=== PATIENT | male | born 1990 | race Caucasian/White ===

== ENCOUNTER 2016-12-24 15:17 | Emergency (ER) | payer OTHER ==
[2016-12-24 15:32] VITALS: BP 129/71; PULSE 65; TEMP 98.2; BMI 33.9
--- NOTE | 2016-12-24 16:06 | PDOC ---
History of Present Illness - General Chief Complaint: Laceration Stated Complaint: INJURY Time Seen by Provider: 12/24/16 15:56 History Source: Patient Exam Limitations: No Limitations - History of Present Illness Initial Comments: 12/24/16 16:04 sharp edge of metal fell onto lateral aspect of left forearm, Past History - Past Medical History Allergies/Adverse Reactions: Allergies Allergy/AdvReac Type Severity Reaction Status Date / Time No Known Allergies Allergy Verified 12/24/16 15:29 Home Medications: Ambulatory Orders NK [No Known Home Medication] 12/24/16 Other medical history: DENIES. - Psycho/Social/Smoking Cessation Hx Anxiety: No Suicidal Ideation: No Smoking Status: No Smoking History: Never smoked Number of Cigarettes Smoked Daily: 0 *Physical Exam - Vital Signs Last Vital Signs Temp Pulse Resp BP Pulse Ox 98.2 F 65 19 129/71 96 12/24/16 15:29 12/24/16 15:29 12/24/16 15:29 12/24/16 15:29 12/24/16 15:29
--- NOTE | 2016-12-24 16:32 | PDOC ---
History of Present Illness - General Chief Complaint: Laceration Stated Complaint: INJURY Time Seen by Provider: 12/24/16 15:56 History Source: Patient Exam Limitations: No Limitations - History of Present Illness Initial Comments: 12/24/16 17:07 Arm laceration incurred when patient was reaching for a piece of lighting when it fell and incised the lateral aspect of his left forearm. Denies range of motion problems or numbness or tingling to fingers, no other injury. Uncertain as to last tetanus shot. 12/24/16 17:08 Timing/Duration: reports: just prior to arrival Severity: Yes: mild Location: reports: none Associated Symptoms: reports: denies symptoms Past History - Travel Traveled outside of the country in the last 30 days: No Close contact w/someone who was outside of country & ill: No - Past Medical History Allergies/Adverse Reactions: Allergies Allergy/AdvReac Type Severity Reaction Status Date / Time No Known Allergies Allergy Verified 12/24/16 15:29 Home Medications: Ambulatory Orders NK [No Known Home Medication] 12/24/16 Other medical history: DENIES. - Psycho/Social/Smoking Cessation Hx Anxiety: No Suicidal Ideation: No Smoking Status: No Smoking History: Never smoked Number of Cigarettes Smoked Daily: 0 Review of Systems - Review of Systems Able to Perform ROS?: Yes Is the patient limited French proficient: Yes Constitutional: Yes: Symptoms Reported, See HPI, Malaise Respiratory: No: Symptoms reported Musculoskeletal: Yes: Symptoms Reported, See HPI, Other (full range of motion against resistance to all fingers both proximal and distal aspects with neurovascular intact to distal fingertips.) Integumentary: Yes: See HPI. No: Symptoms Reported Neurological: Yes: Symptoms reported, See HPI All Other Systems: Reviewed and Negative *Physical Exam - Vital Signs Last Vital Signs Temp Pulse Resp BP Pulse Ox 98.2 F 65 19 129/71 96 12/24/16 15:29 12/24/16 15:29 12/24/16 15:29 12/24/16 15:29 12/24/16 15:29 - Physical Exam General Appearance: Yes: Nourished, Appropriately Dressed, Apparent Distress HEENT: positive: EOMI, TANMAY, TMs Normal, Pharynx Normal Neck: positive: Supple. negative: Tender Musculoskeletal: positive: Normal Inspection Extremity: positive: Normal Capillary Refill, Normal Inspection, Normal Range of Motion, Other (lateral left distal forearm ). 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 NML intact, Fully Oriented, Alert, Normal Mood/ Affect, Normal Response, Motor Strength 5/5 Procedures - Laceration/Wound Repair Left Arm Wound Length: 2.6 to 5.0 cm Wound Explored: clean Wound's Depth, Shape: superficial, linear Irrigated w/ Saline: No Betadine Prep: No Anesthesia: 1% Lidocaine Wound Repaired With: Sutures Suture Size/Type: 4:0 Number of Sutures: 8 Layer Closure: Yes Progress Note - Progress Note Progress Note: arm laceartion, repaired *DC/Admit/Observation/Transfer Diagnosis at time of Disposition: Arm laceration Qualifiers: Encounter type: initial encounter Laterality: right Qualified Code(s): S41.111A - Laceration without foreign body of right upper arm, initial encounter - Discharge Dispostion Disposition: HOME Condition at time of disposition: Stable Admit: No - Patient Instructions Printed Discharge Instructions: DI for Laceration Repair Additional Instructions: Rest, elevate, avoid strenuous activity or heavy lifting until sutures are removed Leave dressing on for the next 24 hours, Then may remove dressing gently and wash area with soap and water. Reapply bacitracin ointment and dressing daily for the next 5 days On day #6 keep the wound protected and cover as needed until sutures are removed allowing wound to start to dry May use Tylenol or Motrin for pain relief Suture removal in : 10 - 14 Days Your tetanus/diphtheria/pertussis booster was updated today - Post Discharge Activity Work/School Note: Back to Work
[2016-12-24] MEDS ORDERED: DIPHTH,PERTUSS(ACELL),TET 0.5 ML DISP.SYRIN IM ONE (16:33)
[2016-12-24] MEDS ORDERED: BACITRACIN 30 GM TUBE TOPICAL OINTMENT ONE (16:59)
[2016-12-24] MEDS ORDERED: BACITRACIN 30 GM TUBE TOPICAL OINTMENT TP ONE (17:06)
== END 2016-12-24 17:27 | disposition home or self-care (01) ==
LOC: JERFT 15:17
PROC: 0HQDXZZ Repair Right Lower Arm Skin, External Approach (ICD-10-PCS; principal; 2016-12-24)
PROC: 3E0234Z Introduction of Serum, Toxoid and Vaccine into Muscle, Percutaneous Approach (ICD-10-PCS; 2016-12-24)
DX: S51.811A Laceration without foreign body of right forearm, initial encounter (principal); W26.8XXA Contact with other sharp object(s), not elsewhere classified, initial encounter; Y93.89 Activity, other specified; Y92.89 Other specified places as the place of occurrence of the external cause; Y99.0 Civilian activity done for income or pay
CPT/HCPCS: 12002-25; 90471; 90715; 99282-25